=== PATIENT | female | born 1955 | race Two or more races ===

== ENCOUNTER 2021-02-23 13:14 | Emergency (ER) | payer OTHER ==
[~2021-02-23] VITALS: Ht 170.2 cm; Wt 74.8 kg
[~2021-02-23 13:14] MED LIST: ACET325T53 PO; Bisacodyl RC; Docusate Sodium PO; ENOX40DI SQ; HYDR-3974 PO
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
--- NOTE | 2021-02-23 15:40 | NUR ---
ANITA officer karis #[id number] at bedside to speak with patient
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
[2021-02-23] MEDS ORDERED: HYDR-4209 PO (17:18)
--- NOTE | 2021-02-23 17:40 | NUR ---
PT. VERBALIZED UNDERSTANDING OF AFTERCARE INSTRUCTIONS.Patient discharged to home in stable condition. Written and verbal after care instructions given. Patient verbalizes understanding of instruction.
[2021-02-23 18:21] VITALS: BP 183/62
== END 2021-02-23 18:21 | disposition home or self-care (01) ==
LOC: ER 13:17
DX: S01.311A Laceration without foreign body of right ear, initial encounter (principal); S10.83XA Contusion of other specified part of neck, initial encounter; F17.200 Nicotine dependence, unspecified, uncomplicated; Z79.899 Other long term (current) drug therapy; Y08.89XA Assault by other specified means, initial encounter; Y93.89 Activity, other specified; Y92.89 Other specified places as the place of occurrence of the external cause; Y99.8 Other external cause status
CPT/HCPCS: 70486-TC

== ENCOUNTER 2021-08-15 16:28 | Emergency (ER) | payer OTHER ==
[~2021-08-15] VITALS: Ht 175.3 cm; Wt 72.6 kg
[~2021-08-15 16:28] MED LIST changes: +HYDR-4209 PO
--- NOTE | 2021-08-15 17:47 | NUR ---
TO ER 9,NO APPARENT CHANGE IN CONDITION
--- NOTE | 2021-08-15 17:50 | NUR ---
BIBS C/O LOW BACK PAIN RADIATING TO LEFT LEG. AMBULATORY, AAOX4, IN PAIN 01/05
[2021-08-15] MEDS ORDERED: HYDROCODONE/APAP 5/325MG TABLET PO ONE (18:00)
[2021-08-15] MEDS ORDERED: KETOROLAC TROMETHAMINE INJ 60 MG/2 ML VIAL IM ONE (18:00)
[2021-08-15] MEDS ORDERED: KETOROLAC TROMETHAMINE INJ 30 MG/ML VIAL ONE (18:05)
[2021-08-15] MEDS ORDERED: HYDROCODONE/APAP 5/325MG TABLET ONE (18:05)
--- NOTE | 2021-08-15 18:20 | NUR ---
CT LUMBAR SPINE DONE
[2021-08-15] MEDS ORDERED: HYDR-3972 PO (19:06)
[2021-08-15] MEDS ORDERED: IBUP-1957 PO (19:06)
--- NOTE | 2021-08-15 19:18 | NUR ---
Patient discharged to home in stable condition. Written and verbal after care instructions given. Patient verbalizes understanding of instruction.
[2021-08-15 19:19] VITALS: BP 140/90
== END 2021-08-15 19:19 | disposition home or self-care (01) ==
LOC: ER 16:35
DX: M54.42 Lumbago with sciatica, left side (principal); M51.36 Other intervertebral disc degeneration, lumbar region; F17.200 Nicotine dependence, unspecified, uncomplicated; Z87.2 Personal history of diseases of the skin and subcutaneous tissue; Z79.891 Long term (current) use of opiate analgesic; Z79.1 Long term (current) use of non-steroidal anti-inflammatories (NSAID)
CPT/HCPCS: 72131; 96372; 99284; J1885

== ENCOUNTER 2021-08-24 10:24 | Emergency (ER) | payer OTHER ==
[~2021-08-24] VITALS: Ht 170.2 cm; Wt 77.1 kg
[~2021-08-24 10:24] MED LIST changes: +HYDR-3972 PO; +IBUP-1957 PO
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
--- NOTE | 2021-08-24 10:50 | NUR ---
AT BED SIDE
[2021-08-24] MEDS ORDERED: CYCL5TAB PO (11:16)
[2021-08-24] MEDS ORDERED: METH4TAB17 PO (11:16)
[2021-08-24] MEDS ORDERED: HYDR-4209 PO (11:16)
[2021-08-24] MEDS ORDERED: HYDROCODONE/APAP 5/325MG TABLET ONE (11:19)
[2021-08-24] MEDS ORDERED: HYDROCODONE/APAP 5/325MG TABLET PO ONE (11:30)
--- NOTE | 2021-08-24 11:34 | NUR ---
Patient discharged to home in stable condition. Written and verbal after care instructions given. Patient verbalizes understanding of instruction.
[2021-08-24 11:48] VITALS: BP 135/86
== END 2021-08-24 11:50 | disposition home or self-care (01) ==
LOC: ER 10:27
DX: M54.42 Lumbago with sciatica, left side (principal); M51.36 Other intervertebral disc degeneration, lumbar region; M48.061 Spinal stenosis, lumbar region without neurogenic claudication; F17.200 Nicotine dependence, unspecified, uncomplicated; Z79.899 Other long term (current) drug therapy